=== PATIENT | male | born 1975 | race American Indian/Alaskan Native ===

== ENCOUNTER 2017-09-16 07:02 | Emergency (ER) | payer SELFPAY ==
[2017-09-16 07:12] VITALS: BP 152/91
== END 2017-09-16 08:00 | disposition left against medical advice (07) ==
LOC: EDBD → ED 07:02
DX: R52 Pain, unspecified (principal); Z53.21 Procedure and treatment not carried out due to patient leaving prior to being seen by health care provider

== ENCOUNTER → 2017-10-09 19:15 | Emergency (ER) | payer SELFPAY | END | disposition left against medical advice (07) | LOC: ED 19:15 | DX: Z53.21 Procedure and treatment not carried out due to patient leaving prior to being seen by health care provider (principal) ==

== ENCOUNTER 2018-10-14 17:20 | Emergency (ER) | payer SELFPAY | END 2018-10-14 17:30 | disposition left against medical advice (07) | LOC: MERGE 17:20 → ED 17:20 | DX: R21 Rash and other nonspecific skin eruption (principal); Z53.21 Procedure and treatment not carried out due to patient leaving prior to being seen by health care provider ==

== ENCOUNTER 2018-12-05 19:27 | Emergency (ER) | payer SELFPAY ==
[2018-12-05 19:56] VITALS: BP 138/81
--- NOTE | 2018-12-05 19:58 | Emergency Department Report ---
Blank Doc - Documentation Documentation: This is a 43-year-old male that presents with pubic rash x2 months. This initial assessment/diagnostic orders/clinical plan/treatment(s) is/are subject to change based on patient's health status, clinical progression and re- assessment by fellow clinical providers in the ED. Further treatment and workup at subsequent clinical providers discretion. Patient/guardians urged not to elope from the ED as their condition may be serious if not clinically assessed and managed. Initial orders include: 1- Patient sent to [facility] for further evaluation and treatment
--- NOTE | 2018-12-05 23:28 | Emergency Department Report ---
ED Rash HPI - HPI Chief Complaint: Urogenital-Male Stated Complaint: RASH IN GENITAL REGION Time Seen by Provider: 12/05/18 19:57 Duration: several months has been dealing with this rash since 07/19/2018. Location: Abdomen Suspected Cause: Unknown Rash Symptoms: Yes Itching, No Facial Swelling, No Tongue/Oral Swelling, No Breathing Difficulties, No Fever, No Lightheaded, No Malaise, No Myalgias Other History: 43-year-old male presents most department complaining of continued redness to the suprapubic area and stated that he take the medication was prescribed for week and he noted some improvement, but the rash did not completely resolve ED Review of Systems ROS: Stated complaint: RASH IN GENITAL REGION Other details as noted in HPI Constitutional: denies: chills, fever Eyes: denies: eye pain, eye discharge, vision change ENT: denies: ear pain, throat pain Respiratory: denies: cough, shortness of breath, wheezing Cardiovascular: denies: chest pain, palpitations Endocrine: no symptoms reported Gastrointestinal: denies: abdominal pain, nausea, diarrhea Genitourinary: denies: urgency, dysuria Musculoskeletal: denies: back pain, joint swelling, arthralgia Skin: rash. denies: lesions Neurological: denies: headache, weakness, paresthesias Psychiatric: denies: anxiety, depression Hematological/Lymphatic: denies: easy bleeding, easy bruising ED Past Medical Hx - Past Medical History Previous Medical History?: Yes Hx Congestive Heart Failure: No Hx Psychiatric Treatment: Yes (Schizophrenia, Delusions, SI, Bipola) Additional medical history: Pain in hands, feet, mouth, Dental pain, Tongue pain, Pelvic pain, chronic pain,. Hallucinations, - Surgical History Past Surgical History?: No Hx Coronary Stent: No Hx Open Heart Surgery: No Hx Pacemaker: No Hx Internal Defibrillator: No Hx Cholecystectomy: No Hx Appendectomy: No Hx Breast Surgery: No Additional Surgical History: denies - Social History Smoking Status: Current Every Day Smoker Substance Use Type: None - Medications Home Medications: Home Medications Medication Instructions Recorded Confirmed Last Taken Type Divalproex Sodium [Depakote] 500 mg PO BID #60 tablet. 08/07/18 Unknown Rx Ziprasidone [Geodon] 20 mg PO BID #60 capsule 08/07/18 Unknown Rx Chlorhexidine Gluconate [Hibiclens] 10 ml TP BID #240 liquid 12/05/18 Unknown Rx Clotrimazole/Betamethasone Dip 1 applicatio TP BID #1 cream..g. 12/05/18 Unknown Rx [Lotrisone Cream] Rash Exam - Exam General: Vital signs noted. No distress. Alert and acting appropriately. HEENT: No Periorbital Edema, No Conjuctival Injection, No Chemosis, No Perioral Edema, No Tongue Edema, No Uvular Edema, No Compromised Airway, No Drooling Lungs: Yes Good Air Exchange (Normal Breath Sounds), No Wheezes, No Ronchi, No Stridor, No Cough, No Labored Respirations, No Retractions, No Use of Accessory Muscles, No Other Abnormal Lung Sounds Heart: Yes Regular, No Murmur Skin: Yes Maculopapular Rash (rash to the suprapubic regions some scaly areas.), No Excoriations, No Weeping, No Tenderness, No Edema, No Encrustations Other: Positive: Abdomen Normal, Neurologic Normal, Musculoskeletal Normal ED Course Vital Signs 12/05/18 12/05/18 19:43 19:56 Temperature 97.8 F 97.8 F Pulse Rate 89 89 Respiratory 18 18 Rate Blood Pressure 138/97 Blood Pressure 138/81 [Right] O2 Sat by Pulse 100 100 Oximetry Critical care attestation.: If time is entered above; I have spent that time in minutes in the direct care of this critically ill patient, excluding procedure time. ED Disposition Clinical Impression: Rash Disposition: DC-01 TO HOME OR SELFCARE Is pt being admited?: No Does the pt Need Aspirin: No Condition: Stable Instructions: Acute Rash (ED)
== END 2018-12-05 23:46 | disposition home or self-care (01) ==
LOC: ED 19:27
DX: R21 Rash and other nonspecific skin eruption (principal); F17.200 Nicotine dependence, unspecified, uncomplicated
CPT/HCPCS: 99282

== ENCOUNTER 2019-01-06 11:26 | Emergency (ER) | payer MEDICARE ==
[2019-01-06] MEDS ORDERED: ATIVAN IM ONE (11:47)
[2019-01-06] MEDS ORDERED: GEODON IM ONE (11:47)
[2019-01-06 12:14] LABS: Basophils % (Auto) 0.5 % (0.0-1.8); Eosinophils % (Auto) 0.4 % (0.0-4.3); Hematocrit 41.6 % (35.5-45.6); Hemoglobin 14.2 gm/dl (11.8-15.2); Lymphocytes % (Auto) 19.8 % (13.4-35.0); Mean Corpuscular HGB Conc 34 % (32-34); Mean Corpuscular Volume 91 fl (84-94); Monocytes # (Auto) 0.7 K/mm3 (0.0-0.8); Monocytes % (Auto) 14.6 % (0.0-7.3); Platelet Count 222 K/mm3 (140-440); Red Blood Count 4.56 M/mm3 (3.65-5.03); Red Cell Distribution Width 14.4 % (13.2-15.2)
[2019-01-06] MEDS ORDERED: WATER FOR INJ Sterile (PF) 10 ML ONE (12:29)
[2019-01-06 12:38] LABS: Alanine Aminotransferase 10 units/L (7-56); Albumin 4.8 g/dL (3.9-5); BUN/Creatinine Ratio 11; Blood Urea Nitrogen 11 mg/dL (9-20); Calcium 9.4 mg/dL (8.4-10.2); Hemolysis Index 8
[2019-01-06] MEDS ORDERED: KEPPRA PO ONE (15:20)
--- NOTE | 2019-01-06 15:28 | Cat Scan Report ---
CT HEAD WITHOUT CONTRAST: HISTORY: Seizure, new onset psychosis. TECHNIQUE: Sequential 2.5mm CT images. COMPARISON: none. FINDINGS: Cerebral Parenchyma: Within normal limits. Cerebellum: Within normal limits. Brainstem: Within normal limits. Ventricles: Normal. Sella: Normal. Extra-axial spaces: Normal. Basal Cisterns: Normal. Intracranial Hemorrhage: None. Midline Shift: None. Calvarium: Normal. Sinuses: There is near-complete opacification of the left maxillary sinus and left ethmoid air cells. The remaining sinuses are adequately aerated. Mastoid Air Cells: Normal. Visualized Orbits: Normal. IMPRESSION: Cranial CT scan within normal limits. Chronic left ethmoid and maxillary sinus disease.
--- NOTE | 2019-01-06 16:43 | Emergency Department Report ---
ED Psych HPI - General Chief Complaint: Psych Stated Complaint: SEIZURES Time Seen by Provider: 01/06/19 11:42 Source: patient, EMS Mode of arrival: Stretcher Limitations: No Limitations - History of Present Illness Initial Comments: 43-year-old male with a past medical history schizophrenia and bipolar disorder presents to the hospital with psychosis and possible seizure. Patient apparently was causing a disturbance at the gas station. Police were called and patient was witnessed to have stiffening and shaking of his body. EMS reported the patient was post ictal upon their arrival is now more alert, agitated and wanting to leave. Patient would not answer any questions including his name or how he is feeling. He is constantly rambling with scientologist delusions and pacing around the room. - Related Data Previous Rx's Medication Instructions Recorded Last Taken Type Divalproex Sodium [Depakote] 500 mg PO BID #60 tablet. 08/07/18 Unknown Rx Ziprasidone [Geodon] 20 mg PO BID #60 capsule 08/07/18 Unknown Rx Chlorhexidine Gluconate [Hibiclens] 10 ml TP BID #240 liquid 12/05/18 Unknown Rx Clotrimazole/Betamethasone Dip 1 applicatio TP BID #1 cream..g. 12/05/18 Unknown Rx [Lotrisone Cream] Allergies Allergy/AdvReac Type Severity Reaction Status Date / Time No Known Allergies Allergy Unverified 10/17/18 08:21 ED Review of Systems ROS: Stated complaint: SEIZURES Other details as noted in HPI Comment: All other systems reviewed and negative ED Past Medical Hx - Past Medical History Previous Medical History?: Yes Hx Congestive Heart Failure: No Hx Psychiatric Treatment: Yes (Schizophrenia, Delusions, SI, Bipola) Additional medical history: Pain in hands, feet, mouth, Dental pain, Tongue pain, Pelvic pain, chronic pain,. Hallucinations, - Surgical History Hx Coronary Stent: No Hx Open Heart Surgery: No Hx Pacemaker: No Hx Internal Defibrillator: No Hx Cholecystectomy: No Hx Appendectomy: No Hx Breast Surgery: No Additional Surgical History: denies - Social History Smoking Status: Current Every Day Smoker Substance Use Type: Alcohol, Marijuana - Medications Home Medications: Home Medications Medication Instructions Recorded Confirmed Last Taken Type Divalproex Sodium [Depakote] 500 mg PO BID #60 tablet. 08/07/18 Unknown Rx Ziprasidone [Geodon] 20 mg PO BID #60 capsule 08/07/18 Unknown Rx Chlorhexidine Gluconate [Hibiclens] 10 ml TP BID #240 liquid 12/05/18 Unknown Rx Clotrimazole/Betamethasone Dip 1 applicatio TP BID #1 cream..g. 12/05/18 Unknown Rx [Lotrisone Cream] ED Physical Exam - General Limitations: Altered Mental Status - Other Other exam information: General: No limitations, patient is alert in no acute distress Head exam: Atraumatic, normocephalic Eyes exam: Normal appearance ENT: Moist mucous membrane Neck exam: Normal inspection, full range of motion, no meningismus nontender Respiratory exam: Clear to auscultation bilateral, no wheezes, rales, crackles Cardiovascular: Normal rate and rhythm, normal heart sounds Abdomen: Soft, nondistended, and nontender, with normal bowel sounds, no rebound, or guarding Extremity: Full range of motion normal inspection no deformity Back: Normal Inspection, full range of motion, no tenderness Neurologic alert, ambulating without difficulty, 5/5 upper and lower extremity strength with grossly intact sensation, no dysarthria Psychiatric: Scientology delusions, rambling, pacing, not answering questions Skin: Warm, dry, intact ED Course Vital Signs 01/06/19 16:21 Temperature 97.3 F L Pulse Rate 60 Blood Pressure 117/84 [Left] O2 Sat by Pulse 100 Oximetry ED Medical Decision Making - Lab Data Result diagrams: 01/06/19 12:05 01/06/19 12:05 Lab Results 01/06/19 01/06/19 01/06/19 Range/Units 12:05 12:05 12:05 WBC 4.9 (4.5-11.0) K/mm3 RBC 4.56 (3.65-5.03) M/mm3 Hgb 14.2 (11.8-15.2) gm/dl Hct 41.6 (35.5-45.6) % MCV 91 (84-94) fl MCH 31 (28-32) pg MCHC 34 (32-34) % RDW 14.4 (13.2-15.2) % Plt Count 222 (140-440) K/mm3 Lymph % (Auto) 19.8 (13.4-35.0) % Emanuel % (Auto) 14.6 H (0.0-7.3) % Eos % (Auto) 0.4 (0.0-4.3) % Baso % (Auto) 0.5 (0.0-1.8) % Lymph # 1.0 L (1.2-5.4) K/mm3 Emanuel # 0.7 (0.0-0.8) K/mm3 Eos # 0.0 (0.0-0.4) K/mm3 Baso # 0.0 (0.0-0.1) K/mm3 Seg Neutrophils % 64.7 (40.0-70.0) % Seg Neutrophils # 3.2 (1.8-7.7) K/mm3 Sodium 140 (137-145) mmol/L Potassium 3.5 L (3.6-5.0) mmol/L Chloride 100.6 (98-107) mmol/L Carbon Dioxide 23 (22-30) mmol/L Anion Gap 20 mmol/L BUN 11 (9-20) mg/dL Creatinine 1.0 (0.8-1.5) mg/dL Estimated GFR > 60 ml/min BUN/Creatinine Ratio 11 % Glucose 222 H (75-100) mg/dL Hemoglobin A1c (4-6) % Calcium 9.4 (8.4-10.2) mg/dL Magnesium 1.80 (1.7-2.3) mg/dL Total Bilirubin 0.80 (0.1-1.2) mg/dL AST 22 (5-40) units/L ALT 10 (7-56) units/L Alkaline Phosphatase 51 (35-129) units/L Total Protein 8.1 (6.3-8.2) g/dL Albumin 4.8 (3.9-5) g/dL Albumin/Globulin Ratio 1.5 % Urine Color (Yellow) Urine Turbidity (Clear) Urine pH (5.0-7.0) Ur Specific Sunspot (1.003-1.030) Urine Protein (Negative) mg/dL Urine Glucose (UA) (Negative) mg/dL Urine Ketones (Negative) mg/dL Urine Blood (Negative) Urine Nitrite (Negative) Urine Bilirubin (Negative) Urine Urobilinogen (<2.0) mg/dL Ur Leukocyte Esterase (Negative) Urine WBC (Auto) (0.0-6.0) /HPF Urine RBC (Auto) (0.0-6.0) /HPF Amorphous Crystals Urine Mucus /HPF Salicylates (2.8-20.0) mg/dL Urine Opiates Screen Urine Methadone Screen Acetaminophen (10.0-30.0) ug/mL Ur Barbiturates Screen Ur Phencyclidine Scrn Ur Amphetamines Screen U Benzodiazepines Scrn Urine Cocaine Screen U Marijuana (THC) Screen Drugs of Abuse Note Plasma/Serum Alcohol < 0.01 (0-0.07) % 01/06/19 01/06/19 01/06/19 Range/Units 12:05 12:05 18:00 WBC (4.5-11.0) K/mm3 RBC (3.65-5.03) M/mm3 Hgb (11.8-15.2) gm/dl Hct (35.5-45.6) % MCV (84-94) fl MCH (28-32) pg MCHC (32-34) % RDW (13.2-15.2) % Plt Count (140-440) K/mm3 Lymph % (Auto) (13.4-35.0) % Emanuel % (Auto) (0.0-7.3) % Eos % (Auto) (0.0-4.3) % Baso % (Auto) (0.0-1.8) % Lymph # (1.2-5.4) K/mm3 Emanuel # (0.0-0.8) K/mm3 Eos # (0.0-0.4) K/mm3 Baso # (0.0-0.1) K/mm3 Seg Neutrophils % (40.0-70.0) % Seg Neutrophils # (1.8-7.7) K/mm3 Sodium (137-145) mmol/L Potassium (3.6-5.0) mmol/L Chloride (98-107) mmol/L Carbon Dioxide (22-30) mmol/L Anion Gap mmol/L BUN (9-20) mg/dL Creatinine (0.8-1.5) mg/dL Estimated GFR ml/min BUN/Creatinine Ratio % Glucose (75-100) mg/dL Hemoglobin A1c 5.2 (4-6) % Calcium (8.4-10.2) mg/dL Magnesium (1.7-2.3) mg/dL Total Bilirubin (0.1-1.2) mg/dL AST (5-40) units/L ALT (7-56) units/L Alkaline Phosphatase (35-129) units/L Total Protein (6.3-8.2) g/dL Albumin (3.9-5) g/dL Albumin/Globulin Ratio % Urine Color (Yellow) Urine Turbidity (Clear) Urine pH (5.0-7.0) Ur Specific Sunspot (1.003-1.030) Urine Protein (Negative) mg/dL Urine Glucose (UA) (Negative) mg/dL Urine Ketones (Negative) mg/dL Urine Blood (Negative) Urine Nitrite (Negative) Urine Bilirubin (Negative) Urine Urobilinogen (<2.0) mg/dL Ur Leukocyte Esterase (Negative) Urine WBC (Auto) (0.0-6.0) /HPF Urine RBC (Auto) (0.0-6.0) /HPF Amorphous Crystals Urine Mucus /HPF Salicylates < 0.3 L (2.8-20.0) mg/dL Urine Opiates Screen Urine Methadone Screen Acetaminophen < 5.0 L (10.0-30.0) ug/mL Ur Barbiturates Screen Ur Phencyclidine Scrn Ur Amphetamines Screen U Benzodiazepines Scrn Urine Cocaine Screen U Marijuana (THC) Screen Drugs of Abuse Note Plasma/Serum Alcohol (0-0.07) % 01/06/19 01/06/19 Range/Units Unknown Unknown WBC (4.5-11.0) K/mm3 RBC (3.65-5.03) M/mm3 Hgb (11.8-15.2) gm/dl Hct (35.5-45.6) % MCV (84-94) fl MCH (28-32) pg MCHC (32-34) % RDW (13.2-15.2) % Plt Count (140-440) K/mm3 Lymph % (Auto) (13.4-35.0) % Emanuel % (Auto) (0.0-7.3) % Eos % (Auto) (0.0-4.3) % Baso % (Auto) (0.0-1.8) % Lymph # (1.2-5.4) K/mm3 Emanuel # (0.0-0.8) K/mm3 Eos # (0.0-0.4) K/mm3 Baso # (0.0-0.1) K/mm3 Seg Neutrophils % (40.0-70.0) % Seg Neutrophils # (1.8-7.7) K/mm3 Sodium (137-145) mmol/L Potassium (3.6-5.0) mmol/L Chloride (98-107) mmol/L Carbon Dioxide (22-30) mmol/L Anion Gap mmol/L BUN (9-20) mg/dL Creatinine (0.8-1.5) mg/dL Estimated GFR ml/min BUN/Creatinine Ratio % Glucose (75-100) mg/dL Hemoglobin A1c (4-6) % Calcium (8.4-10.2) mg/dL Magnesium (1.7-2.3) mg/dL Total Bilirubin (0.1-1.2) mg/dL AST (5-40) units/L ALT (7-56) units/L Alkaline Phosphatase (35-129) units/L Total Protein (6.3-8.2) g/dL Albumin (3.9-5) g/dL Albumin/Globulin Ratio % Urine Color Yellow (Yellow) Urine Turbidity Turbid (Clear) Urine pH 5.0 (5.0-7.0) Ur Specific Sunspot 1.012 (1.003-1.030) Urine Protein <15 mg/dl (Negative) mg/dL Urine Glucose (UA) 50 (Negative) mg/dL Urine Ketones 20 (Negative) mg/dL Urine Blood Neg (Negative) Urine Nitrite Neg (Negative) Urine Bilirubin Neg (Negative) Urine Urobilinogen < 2.0 (<2.0) mg/dL Ur Leukocyte Esterase Sm (Negative) Urine WBC (Auto) 1.0 (0.0-6.0) /HPF Urine RBC (Auto) 6.0 (0.0-6.0) /HPF Amorphous Crystals 1+ Urine Mucus 3+ /HPF Salicylates (2.8-20.0) mg/dL Urine Opiates Screen Presumptive negative Urine Methadone Screen Presumptive negative Acetaminophen (10.0-30.0) ug/mL Ur Barbiturates Screen Presumptive negative Ur Phencyclidine Scrn Presumptive negative Ur Amphetamines Screen Presumptive negative U Benzodiazepines Scrn Presumptive negative Urine Cocaine Screen Presumptive negative U Marijuana (THC) Screen Presumptive negative Drugs of Abuse Note Disclamer Plasma/Serum Alcohol (0-0.07) % - Radiology Data Radiology results: report reviewed CT HEAD WITHOUT CONTRAST: HISTORY: Seizure, new onset psychosis. TECHNIQUE: Sequential 2.5mm CT images. COMPARISON: none. FINDINGS: Cerebral Parenchyma: Within normal limits. Cerebellum: Within normal limits. Brainstem: Within normal limits. Ventricles: Normal. Sella: Normal. Extra-axial spaces: Normal. Basal Cisterns: Normal. Intracranial Hemorrhage: None. Midline Shift: None. Calvarium: Normal. Sinuses: There is near-complete opacification of the left maxillary sinus and left ethmoid air cells. The remaining sinuses are adequately aerated. Mastoid Air Cells: Normal. Visualized Orbits: Normal. IMPRESSION: Cranial CT scan within normal limits. Chronic left ethmoid and maxillary sinus disease. - Medical Decision Making 1013 and transfer forms signed once patient provides a urine sample he may be medically cleared for psychiatric transfer. PT required Geodon and Ativan in the ED for cooperation. no signs tachy, htn, or tremor to suggest etoh withdrawal. Unclear if pt is abusing benzos as possible cause. Empirically started on Keppra 500 twice a day until out patient seizure workup can be obtained. hgb a1c indicates borderline diabetes, follow up advised po kcl for mild hypokalemia - Differential Diagnosis new-onset seizure, psychosis, drug abuse Critical Care Time: No Critical care attestation.: If time is entered above; I have spent that time in minutes in the direct care of this critically ill patient, excluding procedure time. ED Disposition Clinical Impression: Acute psychosis, Seizure, Delusion, Medical clearance for psychiatric admission Disposition: DC/TX-65 PSY HOSP/PSY UNIT Is pt being admited?: No Does the pt Need Aspirin: No Condition: Stable Time of Disposition: 18:33 (awaiting acceptance)
[2019-01-06] MEDS ORDERED: K-DUR PO ONE (18:08)
[2019-01-06 19:32] LABS: Amphetamine Screen,Urine PRESUMPTIVE NEGATIVE; Benzodiazepines Screen,Urine PRESUMPTIVE NEGATIVE; Cannabinoid Screen,Urine PRESUMPTIVE NEGATIVE; Cocaine Screen,Urine PRESUMPTIVE NEGATIVE; Methadone Screen,Urine PRESUMPTIVE NEGATIVE; Opiate Screen,Urine PRESUMPTIVE NEGATIVE
[2019-01-06 19:42] LABS: Amorphous Crystals,Urine 1+; Bilirubin,Urine NEG (Negative); Blood,Urine NEG (Negative); Color,Urine Yellow (Yellow); Mucus,Urine 3+ /HPF; Protein,Urine <15 mg/dL mg/dL (Negative); Urobilinogen,Urine < 2.0 mg/dL (<2.0)
[2019-01-06] MEDS ORDERED: KEPPRA PO SCH (22:00)
[2019-01-07 04:25] VITALS: BP 138/94
[2019-01-07] MEDS ORDERED: ATIVAN IM STA (06:17)
[2019-01-07] MEDS ORDERED: GEODON IM ONE (06:17)
[2019-01-07] MEDS ORDERED: WATER FOR INJ Sterile (PF) 10 ML ONE (06:22)
== END 2019-01-07 06:30 ==
LOC: ED 11:26
DX: F23 Brief psychotic disorder (principal); R56.9 Unspecified convulsions; F22 Delusional disorders; F17.200 Nicotine dependence, unspecified, uncomplicated; F12.10 Cannabis abuse, uncomplicated; F31.9 Bipolar disorder, unspecified; Z79.899 Other long term (current) drug therapy
CPT/HCPCS: 36415; 70450; 80053; 80307; 81001; 83036; 83735; 85025; 96374; 96376; 99285; G0480; J2060; J3486; 80320

== ENCOUNTER 2019-04-01 18:38 | Emergency (ER) | payer SELFPAY ==
--- NOTE | 2019-04-01 18:46 | Event Note ---
ED Screening Note ED Screening Note: B FOOT PAIN KNOWN TO US THIS IS CHRONIC CONDITION I SUSPECT THERE IS A S This initial assessment/diagnostic orders/clinical plan/treatment(s) is/are subject to change based on patients health status, clinical progression and re- assessment by fellow clinical providers in the ED. Further treatment and workup at subsequent clinical providers discretion. Patient/guardian urged not to elope from the ED as their condition may be serious if not clinically assessed and managed. Initial orders include:
[2019-04-01] MEDS ORDERED: TYLENOL PO ONE (19:00)
== END 2019-04-01 21:08 | disposition left against medical advice (07) ==
LOC: ED 18:38
DX: M79.671 Pain in right foot (principal); Z53.21 Procedure and treatment not carried out due to patient leaving prior to being seen by health care provider

== ENCOUNTER 2021-01-16 11:26 | Emergency (ER) | payer MEDICARE ==
[2021-01-16 12:31] VITALS: BP 140/95
--- NOTE | 2021-01-16 12:49 | Emergency Department Report ---
Chief Complaint: Pain General Stated Complaint: CALLUS ON TAMAR FEET Time Seen by Provider: 01/16/21 12:40 - HPI History of Present Illness: This is a 45-year-old male nontoxic, well nourished in appearance, no acute signs of distress presents to the ED with c/o of acute on chronic bilateral feet callus and erectile dysfunction x6 months. Patient denies any other complaints or symptoms. Denies any penile discharge or any urinary symptoms. Denies any chest pain, shortness of breath, fever, chills, nausea, vomiting, headache or stiff neck. Patient denies any trauma or injuries. - Exam Vital Signs: Vital Signs 01/16/21 01/16/21 12:27 12:30 Temperature 98.3 F 98.3 F Pulse Rate 84 Respiratory 20 Rate Blood Pressure 140/95 O2 Sat by Pulse 100 Oximetry Physical Exam: My physical exam GENERAL: The patient is a well-developed, well-nourished in no apparent distress. Patient is alert and acting appropriately for age. Alert and oriented 3, no apparent distress, normal gait, atraumatic. LUNGS: Regular respiratory rate HEART: Regular rate EXTREMITIES: Callus to lateral bilateral feet with no cellulitis or tenderness to touch. Without any cyanosis, clubbing, rash, lesions or edema. Peripheral pulses intact. Capillary refill less than 2 seconds. Full range of motion bilaterally. PSYCHIATRIC: Normal affect with no suicidal or homicidal ideations. MSE screening note: Focused history and physical exam performed. Due to findings the following was ordered: ED Medical Decision Making - Medical Decision Making This is a 39-year-old male that presents with nonmedical emergency. Patient is stable and was examined by me. Patient has been referred to providers for [facility] er evaluation and treatment. At time of discharge, the patient does not seem toxic or ill in appearance. No acute signs of distress noted. Patient agrees to discharge treatment plan of care. No further questions noted by the patient. ED Disposition for MSE Clinical Impression: Callus of foot, Erectile dysfunction Disposition: Z-07 MED SCREENING EXAM-LEFT Is pt being admited?: No Does the pt Need Aspirin: No Condition: Stable Instructions: Erectile Dysfunction, Corns and Calluses Additional Instructions: Follow-up with a primary care doctor in 3-5 days or if symptoms worsen and continue return to emergency room as soon as possible. Referrals: PRIMARY CARE, [Referring] - 3-5 Days CARBUCJUNGA,TED, MD [Staff Physician] - 3-5 Days Time of Disposition: 12:50
== END 2021-01-16 13:45 | disposition left against medical advice (07) ==
LOC: ED 11:26
DX: L84 Corns and callosities (principal); N52.9 Male erectile dysfunction, unspecified; Z53.21 Procedure and treatment not carried out due to patient leaving prior to being seen by health care provider

== ENCOUNTER 2021-03-28 11:26 | Outpatient (CLI) | payer MEDICARE ==
[2021-03-28 11:49] LABS: Hematocrit 41.2 % (35.5-45.6); Hemoglobin 14.5 gm/dl (11.8-15.2); Mean Corpuscular HGB Conc 35 % (32-34); Mean Corpuscular Volume 90 fl (84-94); Platelet Count 191 K/mm3 (140-440); Red Blood Count 4.58 M/mm3 (3.65-5.03); Red Cell Distribution Width 13.4 % (13.2-15.2)
[2021-03-28 13:32] LABS: Total Cells Counted 100
[2021-03-28 13:35] LABS: RBC Morphology Normal
[2021-03-28 13:36] LABS: Platelet Estimate Consistent w Auto
[2021-03-29 01:14] LABS: Alanine Aminotransferase 32 units/L (7-56); Albumin 4.4 g/dL (3.9-5); BUN/Creatinine Ratio 13; Blood Urea Nitrogen 12 mg/dL (9-20); Calcium 9.6 mg/dL (8.4-10.2); HDL Cholesterol 37 mg/dL (40-59); Hemolysis Index 7; LDL Cholesterol,Direct 96 mg/dL (50-130)
[2021-03-31 18:32] LABS: Vitamin D, 25-OH, D2 <4 ng/mL
== END 2021-03-28 11:27 | disposition home or self-care (01) ==
LOC: LAB 11:26
PROVIDERS: ATTEND Internal Medicine
DX: Z00.00 Encounter for general adult medical examination without abnormal findings (principal); Z13.220 Encounter for screening for lipoid disorders; Z13.29 Encounter for screening for other suspected endocrine disorder; E55.9 Vitamin D deficiency, unspecified; N52.9 Male erectile dysfunction, unspecified
CPT/HCPCS: 36415; 80053; 80061; 82306; 83036; 84403; 84443; 85007; 85025

== ENCOUNTER 2021-06-24 17:04 | Emergency (ER) | payer MEDICARE ==
[2021-06-24 17:23] VITALS: BP 148/110
--- NOTE | 2021-06-24 18:08 | Emergency Department Report ---
HPI - General Chief Complaint: Abdominal Pain Time Seen by Provider: 06/24/21 17:43 - HPI HPI: 45-year-old male with history of bipolar disorder presents complaining of 10 days of an itchy rash to his mid abdomen. Patient states that in the beginning it was intensely itchy and he describes the area. After a few days it became slightly painful. The rash also involves his suprapubic region. Other than the itching and the pain at the site of the red rash, he denies any other associated symptoms or complaints. He denies any fever/chills, headache, vision change, chest pain, shortness of breath, cough, abdominal pain, diarrhea, focal weakness, sensory changes, or any other complaints ED Past Medical Hx - Past Medical History Previous Medical History?: Yes Hx Hypertension: No Hx Congestive Heart Failure: No Hx Psychiatric Treatment: No (Unable to assess) Hx HIV: No Additional medical history: Pain in hands, feet, mouth, Dental pain, Tongue pain, Pelvic pain, chronic pain,. Hallucinations, - Surgical History Past Surgical History?: No Hx Coronary Stent: No Hx Open Heart Surgery: No Hx Pacemaker: No Hx Internal Defibrillator: No Hx Cholecystectomy: No Hx Appendectomy: No Hx Breast Surgery: No Additional Surgical History: denies - Social History Smoking Status: Current Every Day Smoker Substance Use Type: None - Medications Home Medications: Home Medications Medication Instructions Recorded Confirmed Last Taken Type Divalproex Sodium [Depakote] 500 mg PO QHS 07/22/20 10/04/20 Unknown History OLANZapine [Zyprexa] 15 mg PO BID 07/22/20 10/04/20 Unknown History Hydrocortisone [Hydrocortisone 1 applicatio TP BID #1 lotion 06/24/21 Unknown Rx 2.5% LOTION] ED Review of Systems ROS: Stated complaint: ITCHING/RASH Other details as noted in HPI Constitutional: denies: chills, fever Eyes: denies: eye pain, vision change ENT: denies: throat pain, congestion Respiratory: denies: cough, shortness of breath Cardiovascular: denies: chest pain, palpitations Endocrine: denies: excessive sweating, flushing Gastrointestinal: denies: abdominal pain, nausea, vomiting, diarrhea Genitourinary: denies: dysuria, frequency, discharge, testicular pain, testicular mass Musculoskeletal: denies: back pain, joint swelling Skin: rash, pruritus. denies: lesions Neurological: denies: headache, weakness, numbness Psychiatric: denies: anxiety, depression Physical Exam - Physical Exam Vital Signs: Vital Signs 06/24/21 17:21 Temperature 98 F Pulse Rate 115 H Respiratory 16 Rate Blood Pressure 148/110 [Left] O2 Sat by Pulse 97 Oximetry Physical Exam: GENERAL: Well developed and well nourished. No acute distress HEAD: Normocephalic. No obvious signs of trauma. ENT: Moist mucous membranes. EYES: Extraocular movements are intact. Pupils are equal round and reactive to light bilaterally NECK: Supple. Full ROM is intact. Trachea is midline. LUNGS: Nonlabored breathing. Equal chest rise bilaterally. Clear to auscultation bilaterally. CARDIOVASCULAR: Regular rate and rhythm. No murmurs or rubs. VASCULAR: Cap refill < 2 seconds ABDOMEN: Abdomen is soft and nondistended. There is no significant tenderness, guarding or rebound. SKIN: Skin is warm and dry. To the mid abdomen just inferior to the umbilicus there is a patch of fine maculopapular rash which is excoriated. This rash extends into the suprapubic region but does not extend into the groin or testicles. The rash appears slightly scaly NEURO: Patient is awake, alert, and oriented. music journalist II-XII grossly intact. No focal deficits. Normal motor and sensory exam throughout. Normal speech. MUSCULOSKELETAL: No obvious deformities. No significant tenderness. Normal ROM throughout. ED Course Vital Signs 06/24/21 17:21 Temperature 98 F Pulse Rate 115 H Respiratory 16 Rate Blood Pressure 148/110 [Left] O2 Sat by Pulse 97 Oximetry ED Medical Decision Making - Medical Decision Making 45-year-old male with bipolar disorder presents complaining of 10 days of pruritic rash to the mid abdomen which has become painful. Denies any other symptoms or complaints. On initial assessment, the patient was afebrile and with normal vitals with the exception of elevated heart rate of 115 and blood pressure of 148/110. However, when I examined the patient I personally measured his heart rate and it was 85 bpm. Physical examination reveals a patch of fine maculopapular rash to the mid abdomen (crosses midline) just inferior to the umbilicus and extending into the suprapubic region. The rash is slightly scaly and with obvious excoriations. Review of the patient's prior medical records reveals that he has had multiple visits to to our emergency room over the past few years for this same rash. The patient states that the only reason he came today was because the rash was higher on the abdomen than normal and he wants some medication. I advised the patient that given he has had recurrent itchy rashes to the reason he should be seen by a primary care doctor or if possible, a costing analyst. He expressed understanding and agreement with that plan. I will prescribe hydrocortisone topical cream for the patient to use until he is able to see a costing analyst. Critical care attestation.: If time is entered above; I have spent that time in minutes in the direct care of this critically ill patient, excluding procedure time. ED Disposition Clinical Impression: Atopic dermatitis Disposition: 01 HOME / SELF CARE / HOMELESS Is pt being admited?: No Condition: Stable Instructions: Rash, Adult, Atopic Dermatitis, Eczema Prescriptions: Hydrocortisone [Hydrocortisone 2.5% LOTION] 1 applicatio TP BID #1 lotion
== END 2021-06-24 18:57 | disposition home or self-care (01) ==
LOC: ED 17:04
DX: L20.9 Atopic dermatitis, unspecified (principal); G89.29 Other chronic pain; K08.89 Other specified disorders of teeth and supporting structures; K13.79 Other lesions of oral mucosa; R10.2 Pelvic and perineal pain; M79.642 Pain in left hand; M79.641 Pain in right hand; M79.672 Pain in left foot; M79.671 Pain in right foot; F17.200 Nicotine dependence, unspecified, uncomplicated
CPT/HCPCS: 99282

== ENCOUNTER 2021-08-30 10:49 | Outpatient (CLI) | payer MEDICARE ==
[2021-08-30 11:41] LABS: Chol/HDL Ratio 3.15 %
== END 2021-08-30 10:50 | disposition home or self-care (01) ==
LOC: LAB 10:49
PROVIDERS: ATTEND Internal Medicine
DX: R73.03 Prediabetes (principal); E78.5 Hyperlipidemia, unspecified
CPT/HCPCS: 36415; 80061; 83036

== ENCOUNTER 2022-02-05 12:58 | Emergency (ER) | payer MEDICARE ==
[2022-02-05 14:16] VITALS: BP 128/90
== END 2022-02-05 20:05 | disposition left against medical advice (07) ==
LOC: ED 12:58
DX: S01.512A Laceration without foreign body of oral cavity, initial encounter (principal); Z53.21 Procedure and treatment not carried out due to patient leaving prior to being seen by health care provider; X58.XXXA Exposure to other specified factors, initial encounter; Y93.89 Activity, other specified; Y92.89 Other specified places as the place of occurrence of the external cause; Y99.8 Other external cause status